=== PATIENT | female | born 1985 | race African-American/Black ===

== ENCOUNTER 2020-04-03 15:36 | Observation (INO) | payer MEDICAID ==
[~2020-04-03] VITALS: Ht 170.2 cm; Wt 123.4 kg
[2020-04-03] MEDS ORDERED: FERR325T6 MT (16:28)
[2020-04-03 16:55] LABS: BASOPHILS % 0.6 % (0.0-2.0); EOSINOPHILS % 0.2 % (0.0-5.0); HEMATOCRIT. 41.9 % (36.0-48.0); HEMOGLOBIN. 14.1 g/dL (12.0-16.0); LYMPHOCYTES % 13.6 % (20.0-50.0); MEAN CORPUSCULAR HEMOGLOBIN 30.6 pg (28.0-32.0); MEAN CORPUSCULAR VOLUME 90.7 fL (81.0-99.0); MEAN PLATELET VOLUME 7.1 fl (7.4-10.4); MONOCYTES % 6.2 % (2.0-8.0); NEUTROPHILS % 79.4 % (40.0-76.0); PLATELET 253 x1000/uL (130-400); RED BLOOD CELL COUNT 4.62 mill/uL (4.2-5.4); RED CELL DISTRIBUTION WIDTH 13.9 % (11.6-14.6)
[2020-04-03 16:57] LABS: CLARITY URINE CLEAR (CLEAR); COLOR URINE YELLOW (YELLOW); KETONES URINE TRACE (NEGATIVE); LEUKOCYTE ESTERASE URINE TRACE (NEGATIVE); NITRITE URINE NEGATIVE (NEGATIVE); OCCULT BLOOD URINE NEGATIVE (NEGATIVE); PH URINE 6.5 (4.5-8.0); PROTEIN URINE TRACE (NEGATIVE)
[2020-04-03 17:02] LABS: CHLORIDE 107 mEq/L (98-107)
[2020-04-03] MEDS ORDERED: URSO300C4 PO (17:08)
[2020-04-03] MEDS ORDERED: FERR325T6 PO (17:08)
[2020-04-03 17:09] LABS: D-DIMER 1.37 mg/L FEU (<0.50); INR 0.9; PARTIAL THROMBOPLASTIN TIME 29.2 sec (23.4-31.0); PROTHROMBIN TIME 9.8 sec (9.6-11.0)
[2020-04-03] MEDS ORDERED: OMEP20TA15 MT (17:09)
[2020-04-03] MEDS ORDERED: DOCO200C5 MT (17:11)
== END 2020-04-03 18:00 | disposition home or self-care (01) ==
LOC: 8 EST LDRP 15:36
PROVIDERS: ADMIT Obstetrics & Gynecology; ATTEND Obstetrics & Gynecology
DX: O13.3 Gestational [pregnancy-induced] hypertension without significant proteinuria, third trimester (principal); Z3A.36 36 weeks gestation of pregnancy
CPT/HCPCS: 36415; 59025; 80053; 81003; 84550; 85025; 85379; 85384; 85610; 85730; G0378; 99281

== ENCOUNTER 2020-04-05 17:33 | Observation (INO) | payer MEDICAID ==
[~2020-04-05] VITALS: Ht 170.2 cm; Wt 123.4 kg
[~2020-04-05 17:33] MED LIST: DOCO200C5 MT; FERR325T6 MT; FERR325T6 PO; OMEP20TA15 MT; URSO300C4 PO
== END 2020-04-05 19:30 | disposition home or self-care (01) ==
LOC: 8 EST LDRP 17:33
PROVIDERS: ADMIT Obstetrics & Gynecology; ATTEND Obstetrics & Gynecology
DX: O13.3 Gestational [pregnancy-induced] hypertension without significant proteinuria, third trimester (principal); O09.523 Supervision of elderly multigravida, third trimester; Z3A.36 36 weeks gestation of pregnancy
CPT/HCPCS: 59025; 76815; 76818; G0378

== ENCOUNTER → 2020-04-13 | Outpatient (CLI) | payer MEDICAID | END | disposition home or self-care (01) | LOC: LAB 11:34 | PROVIDERS: ATTEND Obstetrics & Gynecology | DX: Z20.828 Contact with and (suspected) exposure to other viral communicable diseases (principal) | CPT/HCPCS: C9803; U0003 ==

== ENCOUNTER 2021-10-16 20:02 | Emergency (ER) | payer MEDICAID ==
[~2021-10-16] VITALS: Ht 170.2 cm; Wt 123.9 kg
[~2021-10-16 20:02] MED LIST changes: -FERR325T6 PO; +IBUP-2028 PO; -URSO300C4 PO
[2021-10-16 20:16] VITALS: BP 137/81
[2021-10-16] MEDS ORDERED: IBUP-2029 MT (21:36)
[2021-10-16] MEDS ORDERED: CEPH500T MT (21:36)
== END 2021-10-16 22:39 | disposition home or self-care (01) ==
LOC: ER 20:02
DX: S70.361A Insect bite (nonvenomous), right thigh, initial encounter (principal); L03.115 Cellulitis of right lower limb; S40.861A Insect bite (nonvenomous) of right upper arm, initial encounter; L73.9 Follicular disorder, unspecified; L03.111 Cellulitis of right axilla; W57.XXXA Bitten or stung by nonvenomous insect and other nonvenomous arthropods, initial encounter; Y93.89 Activity, other specified; Y92.89 Other specified places as the place of occurrence of the external cause
CPT/HCPCS: 99281

== ENCOUNTER 2022-12-17 21:57 | Emergency (ER) | payer MEDICAID ==
[~2022-12-17] VITALS: Ht 167.6 cm; Wt 240.0 kg
[~2022-12-17 21:57] MED LIST changes: +CEPH500T MT; +IBUP-2029 MT
[2022-12-17 23:03] VITALS: O2SAT 100
[2022-12-18] MEDS ORDERED: KETOROLAC 30MG/ML VIAL IM ONE
[2022-12-18] MEDS ORDERED: TETANUS, DIPHTHERIA, PERTUSSIS VAC/PF 0.5ML (>10YR OLD) IM ONE ×2 (00:15→02:10)
[2022-12-18] MEDS ORDERED: KETOROLAC 30MG/ML VIAL IM NR (02:00)
[2022-12-18 02:16] LABS: CLARITY URINE CLOUDY (CLEAR); COLOR URINE YELLOW (YELLOW); GLUCOSE URINE NEGATIVE (NEGATIVE); KETONES URINE TRACE (NEGATIVE); LEUKOCYTE ESTERASE URINE NEGATIVE (NEGATIVE); NITRITE URINE NEGATIVE (NEGATIVE); OCCULT BLOOD URINE NEGATIVE (NEGATIVE); PH URINE 5.5 (4.5-8.0); PROTEIN URINE NEGATIVE (NEGATIVE); SPECIFIC GRAVITY URINE 1.029 (1.005-1.030); UROBILINOGEN URINE 0.2 E.U./dL (0.2-1.0)
[2022-12-18 02:20] LABS: BACTERIA URINE TNTC; RBC URINE 0-2 /hpf (0-2); SQUAMOUS EPITHELIAL CELL URINE 1+ /lpf (RARE/1+); WBC URINE 0-2 /hpf (0-2); YEAST URINE NONE SEEN
[2022-12-18] MEDS ORDERED: AMOX1TAB16 MT (03:03)
[2022-12-18] MEDS ORDERED: TETRACAINE 0.5% OPHTH DROPS 4ML RIGHTEYE ONE (03:15)
[2022-12-18] MEDS ORDERED: FLUORESCEIN SODIUM 1MG/STRIP RIGHTEYE ONE (03:30)
[2022-12-18] MEDS ORDERED: AMOXICILLIN/POTASSIUM CLAVULANATE 875/125MG TAB PO ONE (03:45)
[2022-12-18] MEDS ORDERED: ERYTHROMYCIN BASE 0.5% OPHTH OINT 3.5GM RIGHTEYE ONE (04:00)
[2022-12-18] MEDS ORDERED: ERYT60SO TP (04:00)
[2022-12-18] MEDS ORDERED: ERYTHROMYCIN BASE 0.5% OPHTH OINT UD RIGHTEYE NR (08:00)
[2022-12-18] MEDS ORDERED: AMOXICILLIN/POTASSIUM CLAVULANATE 875/125MG TAB PO NR (12:00)
[2022-12-18 12:32] VITALS: BP 137/69; PULSE 85; RESP 18; TEMP 98.3
== END 2022-12-18 12:34 | disposition home or self-care (01) ==
LOC: ER 21:57
DX: S50.11XA Contusion of right forearm, initial encounter (principal); S61.231A Puncture wound without foreign body of left index finger without damage to nail, initial encounter; S05.01XA Injury of conjunctiva and corneal abrasion without foreign body, right eye, initial encounter; Z98.890 Other specified postprocedural states; Y04.1XXA Assault by human bite, initial encounter; Y93.89 Activity, other specified; Y92.89 Other specified places as the place of occurrence of the external cause; Y99.8 Other external cause status
CPT/HCPCS: 99285; 73090; 73130; 70450; 81003; 81025; 70486; 90715; 90471; 96372; J1885

== ENCOUNTER 2022-12-18 20:11 | Emergency (ER) | payer MEDICAID ==
[~2022-12-18] VITALS: Ht 172.7 cm; Wt 109.0 kg
[~2022-12-18 20:11] MED LIST changes: +AMOX1TAB16 MT; +ERYT60SO TP
[2022-12-18 22:47] VITALS: BP 153/107; PULSE 94; RESP 18; TEMP 98.4; O2SAT 100
[2022-12-18 23:10] LABS: BASOPHILS % 0.9 % (0.0-2.0); EOSINOPHILS % 5.2 % (0.0-5.0); HEMATOCRIT. 34.4 % (36.0-48.0); HEMOGLOBIN. 11.3 g/dL (12.0-16.0); LYMPHOCYTES % 28.7 % (20.0-50.0); MEAN CORPUSCULAR HEMOGLOBIN 28.2 pg (28.0-32.0); MEAN CORPUSCULAR HGB CONC 32.9 g/dL (31.0-37.0); MEAN CORPUSCULAR VOLUME 85.6 fL (81.0-99.0); MEAN PLATELET VOLUME 6.7 fl (7.4-10.4); MONOCYTES % 9.8 % (2.0-8.0); NEUTROPHILS % 55.4 % (40.0-76.0); PLATELET 365 x1000/uL (130-400); RED BLOOD CELL COUNT 4.02 mill/uL (4.2-5.4); RED CELL DISTRIBUTION WIDTH 16.5 % (11.6-14.6); WHITE BLOOD COUNT 5.2 x1000/uL (4.5-11.0)
[2022-12-18 23:22] LABS: CHLORIDE 110 mEq/L (98-107); INDEX HEMOLYSI 1 (1-3); INDEX ICTERIC 1 (1-4); INDEX LIPEMIC 1 (1-3); POTASSIUM 4.3 mEq/L (3.5-5.1); SODIUM 142 mEq/L (136-145)
[2022-12-18 23:34] LABS: HCG SCREEN NEGATIVE
[2022-12-18 23:36] LABS: ACETAMINOPHEN <2 ug/mL ug/mL (10-30); ALANINE AMINOTRANSFERASE 57 IU/L (13-61); ALBUMIN 3.4 g/dL (3.4-5.0); ASPARTATE AMINOTRANSFERASE 42 IU/L (15-37); BILIRUBIN TOTAL 0.3 mg/dL (0.1-1.0); CARBON DIOXIDE 31 mEq/L (21-32); CREATININE 0.7 mg/dL (0.6-1.3); ETHANOL BLOOD < 10 mg/dL (<10); GLUCOSE 92 mg/dL (70-105); PROTEIN TOTAL 7.7 g/dL (6.0-8.3); THYROID STIMULATING HORMONE 0.74 uIU/mL (0.36-3.74); UREA NITROGEN BLOOD 11 mg/dL (7-21)
== END 2022-12-19 04:00 | disposition home or self-care (01) ==
LOC: ER 20:11
DX: R45.851 Suicidal ideations (principal); F32.9 Major depressive disorder, single episode, unspecified; F41.9 Anxiety disorder, unspecified; I10 Essential (primary) hypertension; Z79.899 Other long term (current) drug therapy
CPT/HCPCS: 36415; 80053; 80307; 80320; 80329; 84443; 84703; 85025; 99283; G0480